=== PATIENT | male | born 1995 | race Asian ===

== ENCOUNTER 2019-03-20 10:01 | Outpatient (CLI) | payer SELFPAY | END 2019-03-20 10:02 | disposition EMS.NT | LOC: EMS 10:01 | PROVIDERS: ATTEND Surgery | DX: R42 Dizziness and giddiness (principal); R00.0 Tachycardia, unspecified ==

== ENCOUNTER 2020-08-21 12:45 | Outpatient (CLI) | payer OTHER ==
[2020-08-21 13:26] VITALS: BP 113/74
--- NOTE | 2020-08-21 13:26 | SLEEP CARE CONSULTATION ---
Information from patient questionnaire entered by Dodie Hitchcock. I have reviewed and concur with the information entered by Dodie iHtchcock. This document represents the service I personally performed and the decisions made by me, Anupama Francisco ARNP. History of Present Illness Service Date and Time: 08/21/2020 1245 Reason for Visit: New patient Chief Complaint: reports: Unrefreshed sleep, Snoring, Excessive daytime sleepiness, Observed pauses in breathing, Fatigue, Frequent awakenings at night Date of Onset: past year Usual bedtime: 10-11 pm Time it takes to fall asleep: 5-10 minutes Snores at night: Yes Observed to quit breathing while asleep: Yes Sleeps alone due to snoring: No Number of times waking at night: 2-3 times a week Reasons for waking at night: reports: Choking (feels like he is choking on his own saliva), Snoring, Gasping for air, Bathroom Toss, Turn, or Twitch while sleeping: Yes Recalls having dreams: No Usually gets out of bed at: 6 am; weekend about 9 and sometimes 11-12 Feels refreshed in the morning: No Morning headache: No Sleepy or fatigued during the day: Yes Ever fallen asleep while driving: No (no drowsy driving unless late night) Takes day naps: Yes (just on weekends) Dreams during day naps: No Prior sleep studies: No Additional HPI information: I had the pleasure of seeing JARET WATKINS today regarding the possibility of him having a sleep disorder. His current complaints are observed pauses in breathing, frequent night awakenings, unrefreshed sleep, excessive daytime sleepiness and fatigue. He states he does not wake up feeling rested. He is very sleepy during the day and wakens frequently during the night. A previous roommate has told him he was scared for him because he stopped breathing and was choking in his sleep. He is always tired and has fallen asleep while talking to someone. He has had 3-4 people telling him he chokes in his sleep and has very loud snoring. He states if he stops moving, even at work, he can fall asleep but he is okay if he is busy. His father has always snored loudly and he has noticed him using a CPAP machine at night. - Parasomnia Symptoms Ever been unable to move upon waking from sleep: Yes Walks in sleep: No Talks in sleep: No Ever acted out dreams in sleep: No (not that he remembers) Ever felt weak in the knees when startled or emotional: No Bothered by creepy, crawly, restless sensations in legs: No Problems with memory or concentration: Yes (just concentration) Subjective Initial [place] Sleepiness Scale score: 19 (in 2020) Past Medical History Past Medical History: reports: Other (once went to ER for tachycardia and dehydration) Social History The patient's occupation is a [employer]. Patient is Single and lives in [place]. Have you smoked in the past 12 months: No Alcohol use: Yes Alcohol amount and frequency: 1-2 drinks not often Caffeine use: No Family History Family history of sleep disordered breathing: Yes (father) Family Hx Sleep Apnea: Father: Snoring, Sleep apnea - Treated Allergies and Home Medications Drug allergies reviewed: Yes (NKDA) Home medication list reviewed: Yes (Claritin for allergies) Review of Systems Weight gain over past 5 years: 20 Weight loss over past 5 years: 20 Cardiovascular: denies: high blood pressure Respiratory: reports: shortness of breath Neurological: denies: headaches Psychiatric: reports: anxiety. denies: depression Ear/Nose/Throat: denies: dry mouth/throat, tonsillectomy, wisdom teeth removed Endocrine: reports: sluggishness, too hot or cold Musculoskeletal: reports: back pain Immunologic: reports: sneezing, allergies to food or environment Physical Exam Blood Pressure: 113/74 Cuff size: wrist Heart Rate: 67 O2 Saturation: 96 Height: 5 ft 8 in Weight: 164 lb Body Mass Index: 24.9 BMI Classification: Healthy weight Neck circumference: 15 (inches) Nostrils: patent to airflow Mouth and throat: narrow oropharynx Soft palate: long Uvula visualization: 50% Mallampati Class II Tongue: normal in size Tonsils: 1+ Chin and jaw: normal size and position Neck: normal w/o lymphadenopathy or thyromegaly Heart: regular rate and rhythm Lungs: clear bilaterally Impression and Plan 1. Suspected Obstructive Sleep Apnea-Hypopnea Syndrome, as suggested by a history of loud and irregular snoring, observed cessation of breath while asleep, gasping or choking in sleep, frequent awakening during the night, unrefreshed sleep, cognitive impairment, and excessive daytime sleepiness. Narrow oropharynx and obesity are common predisposing factors for obstructive sleep apnea-hypopnea syndrome. I recommend proceeding to polysomnography to confirm the diagnosis and to assess severity. If the patient has significant sleep disordered breathing, a manual CPAP titration study will also be performed to find the optimal treatment pressure. I informed the patient of what the sleep studies involve and after some discussion, obtained agreement to proceed. The pathophysiology of obstructive sleep apnea-hypopnea syndrome was discussed with the patient and health risks of cardiovascular and cerebrovascular disease if not treated. AAS brochure for obstructive sleep apnea-hypopnea syndrome given and reviewed. Risks of drowsy driving discussed in detail and patient advised to avoid long distance driving and to pulling unit floorhand at the first sign of drowsiness. Patient agreed to plan. * Schedule polysomnography +- manual CPAP titration study and return in 1-2 weeks after the study to discuss result and initiate therapy. * Avoid long distance driving or driving when feeling sleepy. * Avoid alcohol, sedative and muscle relaxant around bedtime. * Maintain a healthy weight. * Review instructions provided by trained office staff on how to prepare for the sleep study. * Return for follow-up after sleep study completed. Visit Type: In Office Time Spent with Patient (minutes): 30 Provider Statement: I spent 100% of the Face to Face Visit with the patient with greater than 50% spent counseling the patient and coordination of care.
== END 2020-08-21 12:46 | disposition home or self-care (01) ==
LOC: SC 12:45
PROVIDERS: ATTEND Nurse Practitioner Family
DX: R06.83 Snoring (principal); R06.81 Apnea, not elsewhere classified; G47.8 Other sleep disorders; R41.89 Other symptoms and signs involving cognitive functions and awareness; G47.10 Hypersomnia, unspecified
CPT/HCPCS: 99203; 99212

== ENCOUNTER 2020-10-16 14:32 | Outpatient (CLI) | payer OTHER ==
--- NOTE | 2020-10-16 14:51 | SLEEP CARE CONSULTATION ---
Information from patient questionnaire entered by Dodie Hitchcock. I have reviewed and concur with the information entered by Dodie Hitchcock. This document represents the service I personally performed and the decisions made by , Anupama Francisco ARNP. History of Present Illness Service Date and Time: 10/16/2020 143 Initial [place] Sleepiness Scale score: 19 (in 2020) Current [place] Sleepiness Scale score: 18 Additional HPI information: JARET WATKINS returns for follow up and results of the recently performed polysomnography. The patient was informed of the following findings: no significant sleep disordered breathing with an average AHI of 3.5 and sury oxygen saturation of 88%. His supine AHI was elevated at 6.4. I explained the pathophysiology behind obstructive sleep apnea. Patient does not have sleep apnea and was advised how weight gain could increase the risk of developing sleep apnea in the future. Patient does not have significant sleep disordered breathing but has elevated AHI in supine position so advised positional therapy. Methods to achieve positional management therapy were discussed; such as, positioning with pillows, wearing a T-shirt with tennis balls sewn into the back, Rematee shirt, Zzomba belt and Slumberbump belt. Patient has light to moderate snoring. Snoring can be reduced by weight loss. Weight loss is best achieved with diet consult. Patient instructed to contact PCP for referral. Snoring can also be treated with an oral appliance from a dentist. Advised to check insurance coverage. In addition, an ENT evaluation can be do to see if other treatment is indicated. Patient counseled not drink alcohol less than 4 hours before bedtime as it can increase snoring and apnea. Patient was cautioned about risks of drowsy driving until sleepiness symptoms resolve. Sleep Study - Results Type of Sleep Study: Polysomnography ([facility]) Prior sleep studies: No Polysomnography/Home Sleep Study results: In-laboratory Attended Nocturnal Polysomnography. The patient had good sleep efficiency. The sleep architecture was normal. Respiratory monitoring showed no significant sleep disordered breathing (AHI = 3.5) or hypoxia (sury oxygen saturation of 88.0%). The few respiratory events occurred mainly during supine REM sleep. Snoring was light to moderate in intensity. There was no significant periodic leg movement of sleep. Cardiac rhythm was normal sinus rhythm. No abnormal behavior (parasomnia) observed during the night. Allergies and Home Medications Home medication list reviewed: Yes (no new meds) Review of Systems Review of systems same as previous: Yes (no changes) Physical Exam Heart Rate: 94 O2 Saturation: 99 Height: 5 ft 8 in Weight: 158 lb Body Mass Index: 24.0 BMI Classification: Healthy weight Impression and Plan Snoring but no significant sleep disordered breathing. Patient advised that often weight loss will reduce snoring as well as apnea risk. An oral appliance can also be used for snoring. This would require a dental consultation. Patient cautioned not to use other online appliances as can cause bite issues. A list of accredited dentists in [facility] and one local dentist who makes oral appliances is available in office. Patient is advised to check if insurance will cover. An ENT consult can also be helpful to determine if any other treatment is an option. He was given a pamphlet from [employer], How to get better sleep and asked to review for information on getting restful sleep. * Maintain a healthy weight * Avoid alcohol consumption near bedtime * The patient is cautioned about driving until sleepiness is completely resolved. * Return as needed for follow up. Counseling Topics: Weight control Time Spent with Patient (minutes): 12
== END 2020-10-16 14:33 | disposition home or self-care (01) ==
LOC: SC 14:32
PROVIDERS: ATTEND Nurse Practitioner Family
DX: R06.83 Snoring (principal)
CPT/HCPCS: 99212